=== PATIENT | male | born 1985 ===

== ENCOUNTER 2021-04-16 17:16 | Inpatient (IN) | payer OTHER ==
[~2021-04-16] VITALS: Ht 182.9 cm; Wt 93.9 kg
[2021-04-17] MEDS ORDERED: -LIDODERM PATCH NOTE- MISC SCH (21:00)
[2021-04-17] MEDS ORDERED: BENZOCAINE/MENTHOL LOZENGE PO PRN (21:00)
[2021-04-17] MEDS ORDERED: MELATONIN 5 MG TABLET PO PRN (21:15)
[2021-04-17] MEDS: SENNA 187 MG TABLET PO SCH ×2 (21:15→21:34)
[2021-04-17] MEDS ORDERED: ACETAMINOPHEN 325 MG TABLET PO PRN (21:15)
[2021-04-17] MEDS: DOCUSATE SODIUM 100 MG CAPSULE PO SCH (21:15)
[2021-04-17 21:30] VITALS: BP 159/98
[2021-04-17] MEDS: GABAPENTIN 300 MG CAPSULE PO SCH (21:34)
[2021-04-17] MEDS: PANTOPRAZOLE SODIUM 40 MG DR TABLET PO SCH (21:34)
[2021-04-17] MEDS: ETHYL ALCOHOL 62% ANTISEPTIC NASAL INHALANT 0.6 ML AMPUL NASAL SCH (21:34)
[2021-04-17] MEDS: APIXABAN 5 MG TABLET PO SCH (21:35)
[2021-04-18] VITALS: BP 140/86
[2021-04-18] MEDS: ETHYL ALCOHOL 62% ANTISEPTIC NASAL INHALANT 0.6 ML AMPUL NASAL SCH ×2 (08:17→20:59)
[2021-04-18] MEDS: GABAPENTIN 300 MG CAPSULE PO SCH ×3 (08:17→21:01)
[2021-04-18] MEDS: VITAMIN B COMP/VIT C/FOLIC ACID CAPSULE PO SCH (08:18)
[2021-04-18] MEDS: DOCUSATE SODIUM 100 MG CAPSULE PO SCH ×2 (08:18→21:00)
[2021-04-18] MEDS: MAGNESIUM OXIDE 400 MG TABLET PO SCH (08:19)
[2021-04-18] MEDS: PANTOPRAZOLE SODIUM 40 MG DR TABLET PO SCH ×2 (08:19→21:01)
[2021-04-18] MEDS: AmLODIPine BESYLATE 5 MG TABLET PO SCH (08:19)
[2021-04-18] MEDS: APIXABAN 5 MG TABLET PO SCH ×2 (08:19→20:59)
[2021-04-18] MEDS ORDERED: LIDOCAINE 5% TRANSDERMAL PATCH TD SCH (09:00)
[2021-04-18 10:59] VITALS: BP 139/87
[2021-04-18 13:03] LABS: EOSINOPHILS % (AUTO) 3.3 % (1.0-6.0); HEMATOCRIT 32.6 % (41-53); HEMOGLOBIN 11.2 g/dL (13.5-17.5); LYMPHOCYTES # (AUTO) 2.1 K/uL (1.0-4.8); MEAN CORPUSCULAR HGB CONC 34.5 G/dL (31.0-37.0); MEAN CORPUSCULAR VOLUME 90 fL (80-100); MONOCYTES # (AUTO) 0.8 K/uL (0.1-1.0); MONOCYTES % (AUTO) 10.8 % (2.0-9.0); NEUTROPHILS % (AUTO) 55.9 % (40.0-70.0); PLATELET COUNT (AUTO) 368 K/uL (150-450); RED BLOOD CELL COUNT(AUTO) 3.62 MIL/uL (4.50-5.90); RED CELL DISTRIBUTION WIDTH 14.9 % (11.5-14.5)
[2021-04-18 13:17] LABS: CARBON DIOXIDE 29 mmol/L (22-29); CHLORIDE 102 mmol/L (98-107); POTASSIUM 4.1 mmol/L (3.5-5.1); SODIUM SERUM 139 mmol/L (136-145)
[2021-04-18 13:18] LABS: ALANINE AMINOTRANSFERASE 35 U/L (12-78); ALBUMIN 3.7 g/dL (3.4-5.0); ALKALINE PHOSPHATASE 78 U/L (46-116); ANION GAP 8 mmol/L (8-16); ASPARTATE AMINOTRANSFERASE 22 U/L (15-37); BILIRUBIN,TOTAL 0.4 mg/dL (0.1-1.0); CALCIUM, TOTAL 9.7 mg/dL (8.8-10.5); GLOMERULAR FILTR. RATE CALC > 60 mL/min (>60); GLUCOSE,RANDOM 110 mg/dL (70-110); TOTAL PROTEIN, SERUM 7.6 g/dL (6.4-8.2); UREA NITROGEN, BLOOD 18 mg/dL (7-18)
[2021-04-18 16:29] VITALS: BP 136/84
[2021-04-18] MEDS: SENNA 187 MG TABLET PO SCH (21:00)
[2021-04-19 03:30] VITALS: BP 141/87
[2021-04-19 07:21] VITALS: BP 130/82
[2021-04-19 08:30] VITALS: BP 136/81
[2021-04-19] MEDS: ETHYL ALCOHOL 62% ANTISEPTIC NASAL INHALANT 0.6 ML AMPUL NASAL SCH ×2 (08:45→20:22)
[2021-04-19] MEDS: GABAPENTIN 300 MG CAPSULE PO SCH ×3 (08:46→20:22)
[2021-04-19] MEDS: DOCUSATE SODIUM 100 MG CAPSULE PO SCH ×3 (08:46→20:28)
[2021-04-19] MEDS: PANTOPRAZOLE SODIUM 40 MG DR TABLET PO SCH ×2 (08:46→20:22)
[2021-04-19] MEDS: MAGNESIUM OXIDE 400 MG TABLET PO SCH (08:46)
[2021-04-19] MEDS: APIXABAN 5 MG TABLET PO SCH ×2 (08:46→20:21)
[2021-04-19] MEDS: VITAMIN B COMP/VIT C/FOLIC ACID CAPSULE PO SCH (08:46)
[2021-04-19] MEDS: AmLODIPine BESYLATE 5 MG TABLET PO SCH (08:47)
[2021-04-19 16:00] VITALS: BP 134/85
[2021-04-19] MEDS: SENNA 187 MG TABLET PO SCH ×2 (20:22→20:28)
[2021-04-20] VITALS: BP 128/73
[2021-04-20] MEDS: MAGNESIUM OXIDE 400 MG TABLET PO SCH (08:16)
[2021-04-20] MEDS: GABAPENTIN 300 MG CAPSULE PO SCH ×3 (08:16→20:26)
[2021-04-20] MEDS: AmLODIPine BESYLATE 5 MG TABLET PO SCH (08:16)
[2021-04-20] MEDS: PANTOPRAZOLE SODIUM 40 MG DR TABLET PO SCH ×2 (08:16→20:26)
[2021-04-20] MEDS: VITAMIN B COMP/VIT C/FOLIC ACID CAPSULE PO SCH (08:16)
[2021-04-20] MEDS: DOCUSATE SODIUM 100 MG CAPSULE PO SCH (08:16)
[2021-04-20] MEDS: ETHYL ALCOHOL 62% ANTISEPTIC NASAL INHALANT 0.6 ML AMPUL NASAL SCH ×2 (08:17→20:25)
[2021-04-20] MEDS: APIXABAN 5 MG TABLET PO SCH ×2 (08:17→20:25)
[2021-04-20 09:35] VITALS: BP 141/90
[2021-04-20] MEDS ORDERED: DOCUSATE SODIUM 100 MG CAPSULE PO PRN (10:00)
[2021-04-20] MEDS ORDERED: SENNA 187 MG TABLET PO PRN (10:00)
[2021-04-20 17:24] VITALS: BP 145/100
[2021-04-21 02:40] VITALS: BP 142/92
[2021-04-21 02:42] VITALS: BP 142/92
[2021-04-21] MEDS: AmLODIPine BESYLATE 5 MG TABLET PO SCH (08:17)
[2021-04-21] MEDS: VITAMIN B COMP/VIT C/FOLIC ACID CAPSULE PO SCH (08:17)
[2021-04-21] MEDS: PANTOPRAZOLE SODIUM 40 MG DR TABLET PO SCH ×2 (08:17→20:05)
[2021-04-21] MEDS: GABAPENTIN 300 MG CAPSULE PO SCH ×3 (08:17→20:05)
[2021-04-21] MEDS: APIXABAN 5 MG TABLET PO SCH ×2 (08:17→20:05)
[2021-04-21] MEDS: MAGNESIUM OXIDE 400 MG TABLET PO SCH (08:18)
[2021-04-21] MEDS: ETHYL ALCOHOL 62% ANTISEPTIC NASAL INHALANT 0.6 ML AMPUL NASAL SCH ×2 (08:18→20:05)
[2021-04-21 09:18] VITALS: BP 132/82
[2021-04-21] MEDS: LIDOCAINE/PRILOCAINE 2.5% 30 GM CREAM TP SCH ×2 (13:15→20:05)
[2021-04-21 15:14] VITALS: BP 129/80
[2021-04-22 03:45] VITALS: BP 139/89
[2021-04-22] MEDS: LIDOCAINE/PRILOCAINE 2.5% 30 GM CREAM TP SCH ×3 (07:24→21:00)
[2021-04-22] MEDS: PANTOPRAZOLE SODIUM 40 MG DR TABLET PO SCH ×2 (07:25→20:10)
[2021-04-22] MEDS: APIXABAN 5 MG TABLET PO SCH ×2 (07:25→20:10)
[2021-04-22] MEDS: VITAMIN B COMP/VIT C/FOLIC ACID CAPSULE PO SCH (07:25)
[2021-04-22] MEDS: AmLODIPine BESYLATE 5 MG TABLET PO SCH (07:25)
[2021-04-22] MEDS: GABAPENTIN 300 MG CAPSULE PO SCH ×3 (07:25→20:10)
[2021-04-22] MEDS: ETHYL ALCOHOL 62% ANTISEPTIC NASAL INHALANT 0.6 ML AMPUL NASAL SCH ×2 (07:26→20:10)
[2021-04-22] MEDS: MAGNESIUM OXIDE 400 MG TABLET PO SCH (07:26)
[2021-04-22 08:01] VITALS: BP 128/77
[2021-04-22 15:07] VITALS: BP 150/90
[2021-04-23 01:00] VITALS: BP 149/92
[2021-04-23] MEDS: ETHYL ALCOHOL 62% ANTISEPTIC NASAL INHALANT 0.6 ML AMPUL NASAL SCH ×2 (07:53→20:06)
[2021-04-23] MEDS: LIDOCAINE/PRILOCAINE 2.5% 30 GM CREAM TP SCH ×2 (07:53→20:11)
[2021-04-23] MEDS: MAGNESIUM OXIDE 400 MG TABLET PO SCH (07:55)
[2021-04-23] MEDS: GABAPENTIN 300 MG CAPSULE PO SCH ×3 (07:55→20:06)
[2021-04-23] MEDS: PANTOPRAZOLE SODIUM 40 MG DR TABLET PO SCH ×2 (07:55→20:06)
[2021-04-23] MEDS: VITAMIN B COMP/VIT C/FOLIC ACID CAPSULE PO SCH (07:56)
[2021-04-23] MEDS: APIXABAN 5 MG TABLET PO SCH ×2 (07:56→20:06)
[2021-04-23] MEDS: AmLODIPine BESYLATE 5 MG TABLET PO SCH (07:56)
[2021-04-23 09:30] VITALS: BP 134/91
[2021-04-23 16:25] VITALS: BP 132/84
[2021-04-24] VITALS: BP 133/78
[2021-04-24] MEDS: ETHYL ALCOHOL 62% ANTISEPTIC NASAL INHALANT 0.6 ML AMPUL NASAL SCH ×2 (07:58→20:32)
[2021-04-24] MEDS: ERGOCALCIFEROL (VIT D2) 50,000 UNITS [1,250 MCG] CAPSULE PO SCH (07:58)
[2021-04-24] MEDS: GABAPENTIN 300 MG CAPSULE PO SCH ×3 (07:59→20:31)
[2021-04-24] MEDS: APIXABAN 5 MG TABLET PO SCH ×2 (07:59→20:31)
[2021-04-24] MEDS: PANTOPRAZOLE SODIUM 40 MG DR TABLET PO SCH ×2 (07:59→20:31)
[2021-04-24] MEDS: VITAMIN B COMP/VIT C/FOLIC ACID CAPSULE PO SCH (07:59)
[2021-04-24] MEDS: MAGNESIUM OXIDE 400 MG TABLET PO SCH (07:59)
[2021-04-24] MEDS: AmLODIPine BESYLATE 5 MG TABLET PO SCH (08:00)
[2021-04-24] MEDS: LIDOCAINE/PRILOCAINE 2.5% 30 GM CREAM TP SCH ×2 (08:00→20:33)
[2021-04-24] MEDS: METHOCARBAMOL 750 MG TABLET PO PRN (09:28)
[2021-04-24 10:44] VITALS: BP 135/82
[2021-04-24 16:00] VITALS: BP 141/73
[2021-04-25] VITALS: BP 137/80
[2021-04-25] MEDS ORDERED: MAGN400T7 PO (03:09)
[2021-04-25] MEDS ORDERED: GABA-1181 PO (03:09)
[2021-04-25] MEDS ORDERED: AMLO-257 PO (03:09)
[2021-04-25] MEDS ORDERED: B CO1CAP6 PO (03:09)
[2021-04-25] MEDS ORDERED: APIX5TAB PO (03:09)
[2021-04-25] MEDS ORDERED: PANT-31 PO (03:09)
[2021-04-25] MEDS ORDERED: ERGO500054 PO (03:11)
[2021-04-25 08:30] VITALS: BP 135/82
[2021-04-25] MEDS: AmLODIPine BESYLATE 5 MG TABLET PO SCH (08:38)
[2021-04-25] MEDS: APIXABAN 5 MG TABLET PO SCH ×2 (08:38→20:13)
[2021-04-25] MEDS: ETHYL ALCOHOL 62% ANTISEPTIC NASAL INHALANT 0.6 ML AMPUL NASAL SCH ×2 (08:38→20:13)
[2021-04-25] MEDS: VITAMIN B COMP/VIT C/FOLIC ACID CAPSULE PO SCH (08:38)
[2021-04-25] MEDS: GABAPENTIN 300 MG CAPSULE PO SCH ×3 (08:40→20:13)
[2021-04-25] MEDS: PANTOPRAZOLE SODIUM 40 MG DR TABLET PO SCH ×2 (08:40→20:13)
[2021-04-25] MEDS: MAGNESIUM OXIDE 400 MG TABLET PO SCH (08:40)
[2021-04-25] MEDS: LIDOCAINE/PRILOCAINE 2.5% 30 GM CREAM TP SCH ×2 (08:48→20:13)
[2021-04-25] MEDS: METHOCARBAMOL 750 MG TABLET PO PRN (10:52)
[2021-04-25 16:20] VITALS: BP 139/91
[2021-04-26] VITALS: BP 112/74
[2021-04-26] MEDS: VITAMIN B COMP/VIT C/FOLIC ACID CAPSULE PO SCH (07:46)
[2021-04-26] MEDS: ETHYL ALCOHOL 62% ANTISEPTIC NASAL INHALANT 0.6 ML AMPUL NASAL SCH ×2 (07:46→20:15)
[2021-04-26] MEDS: AmLODIPine BESYLATE 5 MG TABLET PO SCH (07:47)
[2021-04-26] MEDS: PANTOPRAZOLE SODIUM 40 MG DR TABLET PO SCH ×2 (07:47→20:17)
[2021-04-26] MEDS: GABAPENTIN 300 MG CAPSULE PO SCH ×3 (07:47→20:16)
[2021-04-26] MEDS: MAGNESIUM OXIDE 400 MG TABLET PO SCH (07:47)
[2021-04-26] MEDS: APIXABAN 5 MG TABLET PO SCH ×2 (07:48→20:16)
[2021-04-26] MEDS: LIDOCAINE/PRILOCAINE 2.5% 30 GM CREAM TP SCH ×2 (07:53→20:17)
[2021-04-26 08:46] VITALS: BP 122/75
[2021-04-26] MEDS: METHOCARBAMOL 750 MG TABLET PO PRN (09:32)
[2021-04-26 16:23] VITALS: BP 142/88
[2021-04-27] VITALS: BP 136/80
[2021-04-27] MEDS: MAGNESIUM OXIDE 400 MG TABLET PO SCH (07:49)
[2021-04-27] MEDS: APIXABAN 5 MG TABLET PO SCH ×2 (07:49→21:12)
[2021-04-27] MEDS: PANTOPRAZOLE SODIUM 40 MG DR TABLET PO SCH ×2 (07:49→21:12)
[2021-04-27] MEDS: ETHYL ALCOHOL 62% ANTISEPTIC NASAL INHALANT 0.6 ML AMPUL NASAL SCH ×2 (07:49→21:12)
[2021-04-27] MEDS: GABAPENTIN 300 MG CAPSULE PO SCH ×3 (07:49→21:12)
[2021-04-27] MEDS: AmLODIPine BESYLATE 5 MG TABLET PO SCH (07:50)
[2021-04-27] MEDS: VITAMIN B COMP/VIT C/FOLIC ACID CAPSULE PO SCH (07:59)
[2021-04-27 08:00] VITALS: BP 118/78
[2021-04-27] MEDS: LIDOCAINE/PRILOCAINE 2.5% 30 GM CREAM TP SCH ×2 (08:01→21:13)
[2021-04-27 16:08] VITALS: BP 124/76
[2021-04-28] VITALS: BP 141/76
[2021-04-28] MEDS: MAGNESIUM OXIDE 400 MG TABLET PO SCH (08:09)
[2021-04-28] MEDS: GABAPENTIN 300 MG CAPSULE PO SCH ×3 (08:09→20:22)
[2021-04-28] MEDS: AmLODIPine BESYLATE 5 MG TABLET PO SCH (08:09)
[2021-04-28] MEDS: ETHYL ALCOHOL 62% ANTISEPTIC NASAL INHALANT 0.6 ML AMPUL NASAL SCH ×2 (08:09→20:22)
[2021-04-28] MEDS: VITAMIN B COMP/VIT C/FOLIC ACID CAPSULE PO SCH (08:09)
[2021-04-28] MEDS: PANTOPRAZOLE SODIUM 40 MG DR TABLET PO SCH ×2 (08:09→20:22)
[2021-04-28] MEDS: APIXABAN 5 MG TABLET PO SCH ×2 (08:09→20:22)
[2021-04-28] MEDS: LIDOCAINE/PRILOCAINE 2.5% 30 GM CREAM TP SCH ×2 (08:14→20:26)
[2021-04-28 08:30] VITALS: BP 134/104
[2021-04-28 09:00] VITALS: BP 133/83
[2021-04-28 16:30] VITALS: BP 138/85
[2021-04-28 20:25] VITALS: BP 133/84
[2021-04-29 02:10] VITALS: BP 131/83
[2021-04-29] MEDS: ETHYL ALCOHOL 62% ANTISEPTIC NASAL INHALANT 0.6 ML AMPUL NASAL SCH ×2 (07:51→20:02)
[2021-04-29] MEDS: AmLODIPine BESYLATE 5 MG TABLET PO SCH (07:51)
[2021-04-29] MEDS: GABAPENTIN 300 MG CAPSULE PO SCH ×3 (07:51→20:02)
[2021-04-29] MEDS: PANTOPRAZOLE SODIUM 40 MG DR TABLET PO SCH ×2 (07:51→20:02)
[2021-04-29] MEDS: APIXABAN 5 MG TABLET PO SCH ×2 (07:51→20:02)
[2021-04-29] MEDS: VITAMIN B COMP/VIT C/FOLIC ACID CAPSULE PO SCH (07:52)
[2021-04-29] MEDS: MAGNESIUM OXIDE 400 MG TABLET PO SCH (07:52)
[2021-04-29] MEDS: LIDOCAINE/PRILOCAINE 2.5% 30 GM CREAM TP SCH (07:54)
[2021-04-29 08:10] VITALS: BP 143/74
[2021-04-29 15:40] VITALS: BP 145/80
[2021-04-30 00:05] VITALS: BP 129/70
[2021-04-30] MEDS: APIXABAN 5 MG TABLET PO SCH ×2 (07:52→21:06)
[2021-04-30] MEDS: AmLODIPine BESYLATE 5 MG TABLET PO SCH (07:52)
[2021-04-30] MEDS: VITAMIN B COMP/VIT C/FOLIC ACID CAPSULE PO SCH (07:52)
[2021-04-30] MEDS: ETHYL ALCOHOL 62% ANTISEPTIC NASAL INHALANT 0.6 ML AMPUL NASAL SCH ×2 (07:53→21:06)
[2021-04-30] MEDS: GABAPENTIN 300 MG CAPSULE PO SCH ×3 (07:53→21:06)
[2021-04-30] MEDS: MAGNESIUM OXIDE 400 MG TABLET PO SCH (07:53)
[2021-04-30] MEDS: PANTOPRAZOLE SODIUM 40 MG DR TABLET PO SCH ×2 (07:56→21:06)
[2021-04-30] MEDS: METHOCARBAMOL 750 MG TABLET PO PRN (08:35)
[2021-04-30 08:39] VITALS: BP 130/76
[2021-04-30 15:55] VITALS: BP 132/82
[2021-04-30 23:55] VITALS: BP 138/86
[2021-05-01 07:22] LABS: BASOPHILS % (AUTO) 0.7 % (0.0-2.0); EOSINOPHILS % (AUTO) 3.4 % (1.0-6.0); HEMATOCRIT 31.6 % (41-53); HEMOGLOBIN 11.3 g/dL (13.5-17.5); LYMPHOCYTES # (AUTO) 1.5 K/uL (1.0-4.8); LYMPHOCYTES % (AUTO) 25.8 % (22.0-44.0); MEAN CORPUSCULAR HEMOGLOBIN 31.7 pg (26.0-34.0); MEAN CORPUSCULAR HGB CONC 35.6 G/dL (31.0-37.0); MEAN CORPUSCULAR VOLUME 89 fL (80-100); MONOCYTES # (AUTO) 0.6 K/uL (0.1-1.0); MONOCYTES % (AUTO) 9.5 % (2.0-9.0); NEUTROPHILS # (AUTO) 3.6 K/uL (1.8-7.7); NEUTROPHILS % (AUTO) 60.6 % (40.0-70.0); PLATELET COUNT (AUTO) 304 K/uL (150-450); RED BLOOD CELL COUNT(AUTO) 3.55 MIL/uL (4.50-5.90); RED CELL DISTRIBUTION WIDTH 14.1 % (11.5-14.5)
[2021-05-01] MEDS: ETHYL ALCOHOL 62% ANTISEPTIC NASAL INHALANT 0.6 ML AMPUL NASAL SCH ×2 (08:18→20:58)
[2021-05-01] MEDS: AmLODIPine BESYLATE 5 MG TABLET PO SCH (08:18)
[2021-05-01] MEDS: PANTOPRAZOLE SODIUM 40 MG DR TABLET PO SCH ×2 (08:18→20:58)
[2021-05-01] MEDS: GABAPENTIN 300 MG CAPSULE PO SCH ×3 (08:18→20:58)
[2021-05-01] MEDS: ERGOCALCIFEROL (VIT D2) 50,000 UNITS [1,250 MCG] CAPSULE PO SCH (08:18)
[2021-05-01] MEDS: VITAMIN B COMP/VIT C/FOLIC ACID CAPSULE PO SCH (08:19)
[2021-05-01] MEDS: MAGNESIUM OXIDE 400 MG TABLET PO SCH (08:19)
[2021-05-01] MEDS: APIXABAN 5 MG TABLET PO SCH ×2 (08:19→20:58)
[2021-05-01 09:11] VITALS: BP 130/82
[2021-05-01] MEDS ORDERED: GABA-1181 PO (15:04)
[2021-05-01] MEDS ORDERED: AMLO-257 PO (15:04)
[2021-05-01] MEDS ORDERED: APIX5TAB PO (15:04)
[2021-05-01] MEDS ORDERED: B CO1CAP6 PO (15:04)
[2021-05-01] MEDS ORDERED: MAGN400T29 PO (15:04)
[2021-05-01] MEDS ORDERED: ERGO500054 PO (15:04)
[2021-05-01] MEDS ORDERED: PANT-31 PO (15:04)
[2021-05-01 16:53] VITALS: BP 129/53
[2021-05-02] VITALS: BP 131/81
[2021-05-02] MEDS: AmLODIPine BESYLATE 5 MG TABLET PO SCH (07:34)
[2021-05-02] MEDS: GABAPENTIN 300 MG CAPSULE PO SCH (07:34)
[2021-05-02] MEDS: VITAMIN B COMP/VIT C/FOLIC ACID CAPSULE PO SCH (07:34)
[2021-05-02] MEDS: MAGNESIUM OXIDE 400 MG TABLET PO SCH (07:34)
[2021-05-02] MEDS: APIXABAN 5 MG TABLET PO SCH (07:34)
[2021-05-02] MEDS: PANTOPRAZOLE SODIUM 40 MG DR TABLET PO SCH (07:34)
[2021-05-02] MEDS: ETHYL ALCOHOL 62% ANTISEPTIC NASAL INHALANT 0.6 ML AMPUL NASAL SCH (07:34)
[2021-05-02 08:02] VITALS: BP 127/84
== END 2021-05-02 10:00 | disposition home or self-care (01) | DRG 74 ==
LOC: 2WR 04-17 18:47
PROVIDERS: ADMIT Physical Medicine & Rehabilitation; ATTEND Physical Medicine & Rehabilitation
DX: G62.9 Polyneuropathy, unspecified (principal); G82.20 Paraplegia, unspecified; F33.1 Major depressive disorder, recurrent, moderate; M62.82 Rhabdomyolysis; R53.81 Other malaise; D64.9 Anemia, unspecified; G47.00 Insomnia, unspecified; K21.9 Gastro-esophageal reflux disease without esophagitis; F41.1 Generalized anxiety disorder; I10 Essential (primary) hypertension; R00.0 Tachycardia, unspecified; T45.0X1A Poisoning by antiallergic and antiemetic drugs, accidental (unintentional), initial encounter; K59.00 Constipation, unspecified; M21.379 Foot drop, unspecified foot; Z79.01 Long term (current) use of anticoagulants; Z86.16 Personal history of COVID-19; Z86.711 Personal history of pulmonary embolism; Z87.01 Personal history of pneumonia (recurrent); Z91.51 Personal history of suicidal behavior; Y92.89 Other specified places as the place of occurrence of the external cause
CPT/HCPCS: 72148; 80053; 83735; 85025; 87081; 97110; 97112; 97116; 97150; 97162; 97163; 97166; 97530; 97535; 99366